=== PATIENT | male | born 1970 | race Caucasian/White ===

== ENCOUNTER → 2018-07-27 13:13 | Outpatient (CLI) | payer OTHER, SELFPAY ==
--- NOTE | 2018-07-27 13:10 | MRI_ITS ---
STUDY: MRI BRAIN WITH AND WITHOUT CONTRAST (ATTENTION INTERNAL AUDITORY CANALS - I.A.C.'s) REASON FOR EXAM: Male, 48 years old. Ataxia TECHNIQUE: Standardized multiplanar fat and water weighted pulse sequences were obtained. Gadavist 10ml IV was administered for the contrast portion of the examination. COMPARISON: None. FINDINGS: Normal bilateral temporal bones. Normal bilateral internal auditory canals. There is no demonstrated intracanalicular or cisternal vestibular schwannoma (acoustic neuroma). There is no enhancement of the bilateral VIIth or VIIIth cranial nerves. Normal bilateral cochlea, vestibules and semicircular canals. Normal size of the ventricles and extra-axial spaces for the patient's age. Normal white matter tracts of the supratentorial brain. Normal bilateral basal ganglia. Normal thalami. Normal flow voids within the major intracranial circulation suggesting patency by spin echo criteria. Normal venous enhancement. There is no enhancing intra-axial or extra-axial abnormality. A 13 mm cystic collection is present along the right frontal convexity with adjacent right frontal gliosis and without associated enhancement or restricted diffusion. 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 Normal sella turcica, pituitary gland, infundibular stalk, optic chiasm and hypothalamus. Normal tectal plate and pineal gland. Normal midbrain, michelle and medulla. Normal cerebellum. Normal basal cisterns. No demonstrated orbital abnormality, within the constraints of a routine brain study. Normal visualized paranasal sinuses. Normal calvarium and skull base. Normal visualized soft tissue structures. Normal visualized upper cervical spine. MRI/Brain W/WO Contrast IMPRESSION: No MRI evidence of pathology involving the internal auditory canals, temporal bones, or cerebellopontine angles. A 13 mm cystic collection is present along the right frontal convexity with adjacent right frontal gliosis and without associated enhancement or restricted diffusion. 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 Electronically Signed: Terence Pichardo MD at 15:10 EDT Tel , Service support ,
== END ==
PROVIDERS: Family Provider Family Medicine; PCP Family Medicine; Referring Provider Otolaryngology Otolaryngology/Facial Plastic Surgery; Visit Provider Otolaryngology Otolaryngology/Facial Plastic Surgery
DX: R27.0 Ataxia, unspecified (principal)
CPT/HCPCS: 70553; A9585

== ENCOUNTER → 2025-05-02 | Outpatient (CLI) | payer OTHER, SELFPAY ==
--- NOTE | 2025-05-02 13:44 | ECHOD_ITS ---
Reason For Study Reason For Study: Bicuspid Aortic Valve Procedure This was a 2D Doppler, Color Flow transthoracic echocardiogram. The patient is in sinus rhythm. The study was technically difficult. Contrast injection was performed. Exam performed in department. Left Ventricle Normal LV size. Left ventricular systolic function is normal. The left ventricular ejection fraction is 65 %. No regional wall motion abnormalities noted. Right Ventricle Normal RV size. Normal systolic function. Atria Normal left atrium. Normal right atrium. Bubble contrast study is negative for PFO/ASD. Mitral Valve Normal mitral valve. Tricuspid Valve Normal tricuspid valve. Aortic Valve Bicuspid aortic valve. Pulmonic Valve Normal pulmonic valve. Great Vessels Mild to moderately dilated aortic root. The pulmonary artery is normal size. Inferior vena cava collapse with respiration. Pericardium/Pleural No pericardial effusion. Medication 22 gauge I.V. with prn adaptor inserted into left arm. Diluted definity 1.5ml given slow IV push to enhance endocardial definition. Performed a rapid injection of agitated mix of 9 cc saline and 1cc air to assess for atrial septal defect. MMode/2D Measurements & Calculations LVIDd: 4.9 cm IVSd: 1.0 cm LVOT diam: 2.5 cm LVIDs: 3.2 cm LVPWd: 1.0 cm RVDd: 3.8 cm FS: 35.9 % LVOT area: 5.0 cm2 Ao root diam: 4.2 cm LAV(MOD-bp): 52.7 ml LVAd ap4: 47.5 cm2 LAV(MOD-bp) Indexed: 22.6 ml/m2 LVLd ap4: 9.6 cm LAV(MOD-sp2): 53.8 ml EDV(MOD-sp4): 190.8 ml LAV(MOD-sp4): 50.1 ml EDV(sp4-el): 198.7 ml LVAs ap4: 28.5 cm2 LVLs ap4: 8.7 cm ESV(MOD-sp4): 76.6 ml ESV(sp4-el): 79.4 ml EF(MOD-sp4): 59.9 % EF(sp4-el): 60.0 % LVAd ap2: 43.8 cm2 SV(MOD-sp4): 114.2 ml LVLd ap2: 9.5 cm EDV(MOD-bp): 179.5 ml SI(MOD-sp4): 49.0 ml/m2 EDV(MOD-sp2): 164.9 ml ESV(MOD-bp): 68.8 ml EDV(sp2-el): 172.0 ml EF(MOD-bp): 61.7 % LVAs ap2: 23.5 cm2 LVLs ap2: 7.9 cm ESV(MOD-sp2): 57.7 ml ESV(sp2-el): 59.4 ml EF(MOD-sp2): 65.0 % SV(MOD-sp2): 107.3 ml SV(sp4-el): 119.3 ml Ao sinus diam: 4.2 cm SI(MOD-sp2): 46.1 ml/m2 Ao ST Junction: 3.0 cm Aortic Valve Planimetry: 4.7 cm2 LA A4 area: 16.8 cm2 LA dimension(2D): 3.4 cm RA A4 area: 15.6 cm2 TAPSE: 2.2 cm Time Measurements MV dec time: 0.25 sec Doppler Measurements & Calculations MV E max joseph: 44.6 cm/sec Lat Peak E' Joseph: 9.9 cm/sec Med Peak E' Joseph: 10.1 cm/sec MV A max joseph: 54.7 cm/sec E/E' lat: 4.5 E/E' med: 4.4 MV E/A: 0.82 MV V2 max: 72.0 cm/sec MV P1/2t max joseph: 71.5 cm/sec Ao V2 max: 150.1 cm/sec MV max P.1 mmHg MV P1/2t: 98.8 msec Ao max P.0 mmHg MV V2 mean: 43.9 cm/sec MV dec slope: 211.9 cm/sec2 Ao V2 mean: 104.1 cm/sec MV mean P.90 mmHg MVA(P1/2t): 2.2 cm2 Ao mean P.0 mmHg MV V2 VTI: 21.0 cm Ao V2 VTI: 29.7 cm MVA(VTI): 5.7 cm2 AV (velocity ratio): 0.80 FLORENCE(I,D): 4.0 cm2 FLORENCE(V,D): 3.6 cm2 LV V1 max: 108.2 cm/sec SV(LVOT): 118.9 ml PA V2 max: 122.1 cm/sec LV V1 max P.7 mmHg PA V2 mean: 85.4 cm/sec LV V1 mean P.8 mmHg LV V1 mean: 79.3 cm/sec LV V1 VTI: 23.7 cm ECHO/Echo Complete W/ Contrast Interpretation Summary Bubble contrast study is negative for PFO/ASD. Normal LV size. Left ventricular systolic function is normal. The left ventricular ejection fraction is 65 %. Mild to moderately dilated aortic root. Bicuspid aortic valve. Contrast injection was performed. Ordering Physician: Brown Regan Referring Physician: Brown Regan Performed By: Oumar Adamson RCS
== END | disposition home or self-care (01) ==
LOC: CVS 13:42
PROVIDERS: PCP Family Medicine; Referring Provider Internal Medicine Cardiovascular Disease; Visit Provider Internal Medicine Cardiovascular Disease
DX: Q23.81 Bicuspid aortic valve (principal)
CPT/HCPCS: 93306; Q9957; A4216; C8929